=== PATIENT | female | born 1945 | race Asian ===

== ENCOUNTER 2019-09-28 19:29 | Emergency (ER) | payer OTHER ==
[~2019-09-28] VITALS: Ht 167.6 cm; Wt 75.0 kg
[2019-09-28] MEDS ORDERED: IPRATROPIUM BROMIDE (0.02%) 0.5MG/2.5ML NEB HHN STA (20:28)
[2019-09-28] MEDS ORDERED: METHYLPREDNISOLONE SOD SUCC 125 MG/2 ML VIAL IV STA (20:28)
[2019-09-28] MEDS ORDERED: ALBUTEROL (0.083%) 2.5MG/3ML NEB HHN STA (20:28)
[2019-09-28] MEDS ORDERED: LEVOFLOXACIN 750MG PREMIX 150 ML IV ONE (20:30)
[2019-09-28] MEDS ORDERED: SODIUM CHLORIDE 0.9% 1000ML BAG (SEPSIS BOLUS) IV ONE (20:30)
[2019-09-28] MEDS ORDERED: ASPIRIN 81MG TABLET PO ONE (20:30)
[2019-09-28 21:16] LABS: HEMATOCRIT. 39.5 % (36.0-48.0); HEMOGLOBIN. 12.9 g/dL (12.0-16.0); MEAN CORPUSCULAR HEMOGLOBIN 25.8 pg (28.0-32.0); MEAN CORPUSCULAR VOLUME 79.3 fL (81.0-99.0); MEAN PLATELET VOLUME 8.4 fl (7.4-10.4); PLATELET 186 x1000/uL (130-400); RED BLOOD CELL COUNT 4.98 mill/uL (4.2-5.4)
[2019-09-28 21:19] LABS: CHLORIDE 99 mEq/L (98-107); PARTIAL THROMBOPLASTIN TIME 30.5 sec (23.4-31.0)
[2019-09-28 21:28] LABS: PLATELET ESTIMATE NORMAL
[2019-09-29 01:24] LABS: CLARITY URINE CLEAR (CLEAR); COLOR URINE YELLOW (YELLOW); KETONES URINE NEGATIVE (NEGATIVE); LEUKOCYTE ESTERASE URINE NEGATIVE (NEGATIVE); NITRITE URINE NEGATIVE (NEGATIVE); OCCULT BLOOD URINE TRACE (NEGATIVE); PROTEIN URINE NEGATIVE (NEGATIVE); SPECIFIC GRAVITY URINE 1.003 (1.005-1.030); UROBILINOGEN URINE 0.2 E.U./dL (0.2-1.0)
[2019-09-29 01:27] VITALS: BP 140/70
== END 2019-09-29 02:00 | disposition short-term general hospital (02) ==
LOC: ER 19:29
DX: J45.909 Unspecified asthma, uncomplicated (principal); A41.9 Sepsis, unspecified organism; R65.20 Severe sepsis without septic shock; J18.9 Pneumonia, unspecified organism; I10 Essential (primary) hypertension
CPT/HCPCS: 36415; 71045; 80053; 81003; 83605; 83880; 84145; 84484; 85025; 85610; 85730; 87040; 87086; 87804; 93005; 94644; 96365; 96375; 99291; J1956; J2930; J7030; J7611

== ENCOUNTER 2021-10-20 02:58 | Emergency (ER) | payer OTHER ==
[~2021-10-20] VITALS: Ht 162.6 cm; Wt 61.0 kg
[2021-10-20] MEDS ORDERED: MORPHINE SULFATE 4 MG/ML CPJ (NOT FOR IM USE) IV STA (03:19)
[2021-10-20] MEDS ORDERED: ONDANSETRON HCL 4MG/2ML INJ IV STA (03:19)
[2021-10-20] MEDS ORDERED: SODIUM CHLORIDE 0.9% 1,000 ML IV ONE (03:30)
[2021-10-20 04:13] LABS: BASOPHILS % 0.2 % (0.0-2.0); EOSINOPHILS % 1.2 % (0.0-5.0); HEMATOCRIT. 40.3 % (36.0-48.0); HEMOGLOBIN. 13.1 g/dL (12.0-16.0); LYMPHOCYTES % 7.4 % (20.0-50.0); MEAN CORPUSCULAR HEMOGLOBIN 25.4 pg (28.0-32.0); MEAN CORPUSCULAR VOLUME 78.1 fL (81.0-99.0); MEAN PLATELET VOLUME 8.6 fl (7.4-10.4); NEUTROPHILS % 86.2 % (40.0-76.0); PLATELET 228 x1000/uL (130-400); RED BLOOD CELL COUNT 5.16 mill/uL (4.2-5.4); RED CELL DISTRIBUTION WIDTH 14.3 % (11.6-14.6)
[2021-10-20 04:27] LABS: CHLORIDE 108 mEq/L (98-107)
[2021-10-20 05:13] LABS: CLARITY URINE CLEAR (CLEAR); COLOR URINE YELLOW (YELLOW); KETONES URINE NEGATIVE (NEGATIVE); LEUKOCYTE ESTERASE URINE 1+ (NEGATIVE); NITRITE URINE POSITIVE (NEGATIVE); OCCULT BLOOD URINE 2+ (NEGATIVE); PROTEIN URINE 1+ (NEGATIVE); SPECIFIC GRAVITY URINE 1.026 (1.005-1.030); UROBILINOGEN URINE 0.2 E.U./dL (0.2-1.0)
[2021-10-20] MEDS ORDERED: LEVOFLOXACIN 500MG PREMIX 100 ML IV ONE (05:30)
[2021-10-20] MEDS ORDERED: TRAM50TA94 MT (05:44)
[2021-10-20] MEDS ORDERED: SULF1TAB48 MT (05:44)
[2021-10-20] MEDS ORDERED: IOHEXOL-300 100 ML BOTTLE ONE (05:45)
[2021-10-20 06:00] VITALS: BP 147/66
== END 2021-10-20 06:38 | disposition home or self-care (01) ==
LOC: ER 02:58
DX: N30.00 Acute cystitis without hematuria (principal); E86.0 Dehydration; I10 Essential (primary) hypertension; E78.00 Pure hypercholesterolemia, unspecified; Z86.73 Personal history of transient ischemic attack (TIA), and cerebral infarction without residual deficits
CPT/HCPCS: 36415; 71045; 74177; 80053; 81003; 83605; 83690; 84484; 85025; 96361; 96365; 96375; 99285; J1956; J2270; J2405; J7030; Q9967